=== PATIENT | male | born 1980 | race Caucasian/White ===

== ENCOUNTER → 2018-05-13 | Outpatient (CLI) | payer BC ==
--- NOTE | 2018-05-13 14:59 | REP ---
PA and lateral chest: Comparison is 03/21/2016. The lung gutierrez are clear. The cardiac size is normal. The fredrick, mediastinum, and skeletal structures are unremarkable. Impression: Negative PA and lateral chest. There is no interval change. Electronically Signed by Daniel Chiang MD 05/13/2018 02:50 P
== END ==
LOC: M WUC 13:05
PROVIDERS: ATTEND Physician Assistant
DX: R05 Cough (principal)

== ENCOUNTER → 2019-07-30 | Outpatient (REF) | payer BC ==
[2019-07-30 18:12] LABS: HEMOGLOBIN 14.3 g/dl (13.5-17.5); MEAN CORPUSCULAR HEMOGLOBIN 32.3 pg (27.0-33.0); MEAN CORPUSCULAR VOLUME 94.8 fl (80.0-96.0); PLATELET COUNT, AUTOMATED 157 10^3/uL (150-450); RED BLOOD COUNT 4.43 10^6/uL (4.30-6.10); WHITE BLOOD COUNT 9.3 10^3/uL (4.0-10.0)
[2019-07-30 18:45] LABS: ALBUMIN 4.4 GM/DL (3.2-5.2); ALT/SGPT 119 U/L (12-78); BILIRUBIN,TOTAL 0.6 MG/DL (0.2-1.0); BLOOD UREA NITROGEN 15 MG/DL (7-18); CALCIUM LEVEL 9.1 MG/DL (8.5-10.1); CARBON DIOXIDE LEVEL 25 MEQ/L (21-32); CHLORIDE LEVEL 102 MEQ/L (98-107); CREATININE FOR GFR 0.95 MG/DL (0.70-1.30); GLOMERULAR FILTRATION RATE > 60.0 (>60); GLUCOSE, FASTING 126 MG/DL (70-100); SODIUM LEVEL 136 MEQ/L (136-145); TOTAL PROTEIN 7.2 GM/DL (6.4-8.2)
== END ==
LOC: M LAB REF 16:52
PROVIDERS: ATTEND Student in an Organized Health Care Education/Training Program
DX: I10 Essential (primary) hypertension (principal)

== ENCOUNTER 2020-10-28 11:25 | Emergency (ER) | payer BC ==
[~2020-10-28] VITALS: Ht 185.4 cm; Wt 115.3 kg
[2020-10-28] MEDS ORDERED: METF500T13 (11:41)
[2020-10-28] MEDS ORDERED: ARIP1TAB4 (11:41)
[2020-10-28] MEDS ORDERED: OLME1TAB3 (11:41)
[2020-10-28 12:04] VITALS: BP 148/115
--- NOTE | 2020-10-29 09:29 | ECGEPIP ---
[facility] - ED Test Date: 2020-10-28 Pat Name: WEN ZARATE Department: Room: - Gender: Male District Leader: RS : 1980 Requested By: Smita Chan Order Number: [id number] Reading MD: Smita Chan Measurements Intervals [place] Rate: 93 P: 51 SC: 152 QRS: 2 QRSD: 78 T: 33 QT: 352 QTc: 437 Interpretive Statements Normal sinus rhythm similar 03/21/16 Electronically Signed on 10-29-2020 9:29:12 EDT by Smita Chan
== END 2020-10-28 14:39 | disposition home or self-care (01) ==
LOC: M ED 11:25
DX: E11.65 Type 2 diabetes mellitus with hyperglycemia (principal); I10 Essential (primary) hypertension; F17.200 Nicotine dependence, unspecified, uncomplicated; Z79.84 Long term (current) use of oral hypoglycemic drugs; Z79.899 Other long term (current) drug therapy; Z88.0 Allergy status to penicillin; Z82.49 Family history of ischemic heart disease and other diseases of the circulatory system

== ENCOUNTER → 2020-11-18 | Outpatient (REF) | payer BC ==
[~2020-11-18] MED LIST: ARIP1TAB4; METF500T13; OLME1TAB3
== END ==
LOC: M LAB REF 16:43
PROVIDERS: ATTEND Internal Medicine
DX: I10 Essential (primary) hypertension (principal); F41.0 Panic disorder [episodic paroxysmal anxiety]

== ENCOUNTER → 2020-12-09 | Outpatient (REF) | payer BC | LOC: M LAB REF 11:44 | PROVIDERS: ATTEND Internal Medicine | DX: I10 Essential (primary) hypertension (principal) ==

== ENCOUNTER → 2021-02-21 | Outpatient (REF) | payer BC ==
[2021-02-21 17:48] LABS: C REACTIVE PROTEIN QUANTITATIV 0.74 MG/DL (0.00-0.30); FERRITIN 911 NG/ML (26-388); IRON (FE) 92 UG/DL (65-175); PERCENT SATURATION 24.2 % (19.7-50.0); TOTAL IRON BINDING CAPACITY 380 UG/DL (250-450)
[2021-02-21 18:08] LABS: HEPATITIS B SURFACE ANTIGEN NEGATIVE (NEGATIVE)
[2021-02-21 18:35] LABS: HEPATITIS B CORE ANTIBODY IGM NEGATIVE (NEGATIVE); HEPATITIS C VIRUS ABY INDEX 0.1 INDEX (<0.8)
== END ==
LOC: M LAB REF 16:30
PROVIDERS: ATTEND Internal Medicine
DX: R74.01 Elevation of levels of liver transaminase levels (principal); E11.65 Type 2 diabetes mellitus with hyperglycemia; R19.7 Diarrhea, unspecified

== ENCOUNTER → 2021-03-02 | Outpatient (CLI) | payer BC | LOC: M RAD 08:09 | PROVIDERS: ATTEND Internal Medicine | DX: K76.0 Fatty (change of) liver, not elsewhere classified (principal); R94.5 Abnormal results of liver function studies ==

== ENCOUNTER → 2021-05-24 | Outpatient (REF) | payer BC ==
[2021-05-24 16:40] LABS: INR 0.95; PROTHROMBIN TIME 13.1 SECONDS (12.7-14.5)
[2021-05-26 23:07] LABS: ANA (HEP2) Negative (.)
== END ==
LOC: M LAB REF 16:17
PROVIDERS: ATTEND Internal Medicine
DX: R94.5 Abnormal results of liver function studies (principal)

== ENCOUNTER 2021-10-16 12:25 | Emergency (ER) | payer BC ==
[~2021-10-16] VITALS: Ht 182.9 cm; Wt 103.8 kg
[2021-10-16 12:27] VITALS: BP 155/89
[2021-10-16] MEDS ORDERED: SERT50TA29 (12:34)
[2021-10-16] MEDS ORDERED: CITA20TA7 (12:34)
[2021-10-16] MEDS ORDERED: JARD1TAB (12:34)
== END 2021-10-16 16:11 | disposition left against medical advice (07) ==
LOC: M ED 15:55
DX: Z53.29 Procedure and treatment not carried out because of patient's decision for other reasons (principal)

== ENCOUNTER → 2024-04-17 | Outpatient (CLI) ==
[~2024-04-17] MED LIST changes: +CITA20TA7; +JARD1TAB; +SERT50TA29
== END ==
LOC: M SOG 07:58
PROVIDERS: ATTEND Orthopaedic Surgery
DX: M79.662 Pain in left lower leg (principal)